=== PATIENT | female | born 1955 | race Caucasian/White ===

== ENCOUNTER → 2017-08-09 | Outpatient (CLI) | payer OTHER ==
[~2017-08-09] MED LIST: CATAFLAN; GLUCO BURST37.5 GM; METFORMIN HYDRO25 GM; PNEU16DI2
== END | disposition home or self-care (01) ==
LOC: LAB 07:38
DX: I10 Essential (primary) hypertension (principal); M54.5 Low back pain; E78.9 Disorder of lipoprotein metabolism, unspecified; E55.9 Vitamin D deficiency, unspecified; E03.8 Other specified hypothyroidism; E66.8 Other obesity; M89.9 Disorder of bone, unspecified; E11.9 Type 2 diabetes mellitus without complications; E11.51 Type 2 diabetes mellitus with diabetic peripheral angiopathy without gangrene; G52.9 Cranial nerve disorder, unspecified; E11.42 Type 2 diabetes mellitus with diabetic polyneuropathy; K21.9 Gastro-esophageal reflux disease without esophagitis; E11.65 Type 2 diabetes mellitus with hyperglycemia; F17.200 Nicotine dependence, unspecified, uncomplicated

== ENCOUNTER 2017-08-27 08:47 | Outpatient (CLI) | payer OTHER | END 2017-08-27 12:24 | disposition home or self-care (01) | LOC: MAMO-SONO 08:47 | DX: Z12.31 Encounter for screening mammogram for malignant neoplasm of breast (principal); I10 Essential (primary) hypertension; M54.5 Low back pain; E78.9 Disorder of lipoprotein metabolism, unspecified; E55.9 Vitamin D deficiency, unspecified; E03.8 Other specified hypothyroidism; E66.8 Other obesity; M89.9 Disorder of bone, unspecified; E11.9 Type 2 diabetes mellitus without complications; E11.51 Type 2 diabetes mellitus with diabetic peripheral angiopathy without gangrene; G62.9 Polyneuropathy, unspecified; E11.42 Type 2 diabetes mellitus with diabetic polyneuropathy; K21.9 Gastro-esophageal reflux disease without esophagitis ==

== ENCOUNTER 2017-11-11 12:10 | Outpatient (CLI) | payer OTHER | END 2017-11-11 12:17 | disposition home or self-care (01) | LOC: LAB 12:10 | DX: I10 Essential (primary) hypertension (principal); M54.5 Low back pain; E78.9 Disorder of lipoprotein metabolism, unspecified; E55.9 Vitamin D deficiency, unspecified; E03.9 Hypothyroidism, unspecified; E66.8 Other obesity; M89.9 Disorder of bone, unspecified; E11.9 Type 2 diabetes mellitus without complications; E11.51 Type 2 diabetes mellitus with diabetic peripheral angiopathy without gangrene; G62.9 Polyneuropathy, unspecified; E11.42 Type 2 diabetes mellitus with diabetic polyneuropathy; K21.9 Gastro-esophageal reflux disease without esophagitis; E11.65 Type 2 diabetes mellitus with hyperglycemia; F17.200 Nicotine dependence, unspecified, uncomplicated ==

== ENCOUNTER 2018-09-15 08:57 | Outpatient (CLI) | payer OTHER | END 2018-09-15 13:49 | disposition home or self-care (01) | LOC: LAB 08:57 | DX: F32.89 Other specified depressive episodes (principal); E11.9 Type 2 diabetes mellitus without complications; E03.8 Other specified hypothyroidism; E11.42 Type 2 diabetes mellitus with diabetic polyneuropathy; E11.51 Type 2 diabetes mellitus with diabetic peripheral angiopathy without gangrene; E11.69 Type 2 diabetes mellitus with other specified complication; E66.8 Other obesity; E55.9 Vitamin D deficiency, unspecified; E78.89 Other lipoprotein metabolism disorders; F17.208 Nicotine dependence, unspecified, with other nicotine-induced disorders; G62.89 Other specified polyneuropathies; I10 Essential (primary) hypertension; K21.9 Gastro-esophageal reflux disease without esophagitis; M54.89 Other dorsalgia; M89.9 Disorder of bone, unspecified ==

== ENCOUNTER 2021-03-16 08:00 | Outpatient (CLI) | payer OTHER | END 2021-03-16 08:30 | disposition home or self-care (01) | LOC: PPH VACUNA 08:00 | DX: Z23 Encounter for immunization (principal) ==

== ENCOUNTER 2021-04-18 08:23 | Outpatient (CLI) | payer OTHER | END 2021-04-18 08:26 | disposition home or self-care (01) | LOC: NUCLEAR 08:23 | PROVIDERS: ATTEND Internal Medicine | DX: I82.622 Acute embolism and thrombosis of deep veins of left upper extremity (principal); I82.492 Acute embolism and thrombosis of other specified deep vein of left lower extremity ==

== ENCOUNTER 2021-04-25 08:00 | Outpatient (CLI) | payer OTHER | END 2021-04-25 08:30 | disposition home or self-care (01) | LOC: PPH VACUNA 08:00 | PROVIDERS: ATTEND Emergency Medicine Pediatric Emergency Medicine | DX: Z23 Encounter for immunization (principal) ==

== ENCOUNTER 2021-11-08 08:00 | Outpatient (CLI) | payer OTHER | END 2021-11-08 08:30 | disposition home or self-care (01) | LOC: PPH VACUNA 08:00 | PROVIDERS: ATTEND Emergency Medicine Pediatric Emergency Medicine | DX: Z23 Encounter for immunization (principal) ==

== ENCOUNTER 2021-12-04 11:27 | Outpatient (CLI) | payer OTHER ==
[2021-12-07] MEDS ORDERED: FOSAMAX70 MG PO (08:39)
[2021-12-07] MEDS ORDERED: HYDROCHLOROTH12.5 MG PO (08:40)
[2021-12-07] MEDS ORDERED: OPTIMAL D31250 MCG PO (08:40)
[2021-12-07] MEDS ORDERED: LEVO-T150 MCG PO (08:40)
[2021-12-07] MEDS ORDERED: CHILDREN'S ASPI81 MG PO (08:40)
[2021-12-07] MEDS ORDERED: VASOTEC2.5 MG PO (08:40)
[2021-12-07] MEDS ORDERED: SIMVASTATIN10 MG PO (08:41)
[2021-12-07] MEDS ORDERED: METFORMIN HCL1000 M2 PO (08:41)
== END 2021-12-04 11:28 | disposition home or self-care (01) ==
LOC: LAB 11:27
PROVIDERS: ATTEND Orthopaedic Surgery
DX: D68.9 Coagulation defect, unspecified (principal); E78.2 Mixed hyperlipidemia; N39.0 Urinary tract infection, site not specified; Z03.818 Encounter for observation for suspected exposure to other biological agents ruled out; R07.9 Chest pain, unspecified

== ENCOUNTER 2021-12-12 05:56 | Day surgery (SDC) | payer OTHER ==
[~2021-12-12 05:56] MED LIST changes: +CHILDREN'S ASPI81 MG PO; +FOSAMAX70 MG PO; +HYDROCHLOROTH12.5 MG PO; +LEVO-T150 MCG PO; +METFORMIN HCL1000 M2 PO; +OPTIMAL D31250 MCG PO; +SIMVASTATIN10 MG PO; +VASOTEC2.5 MG PO
[2021-12-12] MEDS ORDERED: NABUMETONE500 MG PO (10:02)
[2021-12-12] MEDS ORDERED: PERCOCET 5-3251 EACH PO (10:02)
== END 2021-12-12 12:10 | disposition home or self-care (01) ==
LOC: CIR.AMB 05:56
PROVIDERS: ATTEND Orthopaedic Surgery
DX: M75.121 Complete rotator cuff tear or rupture of right shoulder, not specified as traumatic (principal); M75.101 Unspecified rotator cuff tear or rupture of right shoulder, not specified as traumatic; M24.111 Other articular cartilage disorders, right shoulder; Z20.822 Contact with and (suspected) exposure to COVID-19; Z88.8 Allergy status to other drugs, medicaments and biological substances; E78.00 Pure hypercholesterolemia, unspecified; Z71.6 Tobacco abuse counseling; F17.210 Nicotine dependence, cigarettes, uncomplicated; E03.9 Hypothyroidism, unspecified; G40.802 Other epilepsy, not intractable, without status epilepticus; M19.90 Unspecified osteoarthritis, unspecified site; Z79.82 Long term (current) use of aspirin; Z79.84 Long term (current) use of oral hypoglycemic drugs

== ENCOUNTER 2023-01-28 08:03 | Outpatient (CLI) | payer OTHER ==
[~2023-01-28 08:03] MED LIST changes: +NABUMETONE500 MG PO; +PERCOCET 5-3251 EACH PO
== END 2023-01-28 08:05 | disposition home or self-care (01) ==
LOC: NUCLEAR 08:03
PROVIDERS: ATTEND Internal Medicine
DX: Z01.810 Encounter for preprocedural cardiovascular examination (principal); E11.43 Type 2 diabetes mellitus with diabetic autonomic (poly)neuropathy; Z79.84 Long term (current) use of oral hypoglycemic drugs; I10 Essential (primary) hypertension; E03.9 Hypothyroidism, unspecified; M54.50 Low back pain, unspecified; E11.51 Type 2 diabetes mellitus with diabetic peripheral angiopathy without gangrene; E11.65 Type 2 diabetes mellitus with hyperglycemia

== ENCOUNTER 2023-06-17 08:16 | Outpatient (CLI) | payer OTHER ==
[2023-06-17 09:30] LABS: HEMATOCRIT 40.5 % (36.0-45.00); HEMOGLOBIN 13.8 g/dL (12.0-15.00); MEAN CELL VOLUME 92.9 fL (80.00-100.00); MEAN CORPUSCULAR HEMOGLOBIN 31.7 pg (27.00-32.0); MEAN CORPUSCULAR HGB CONC 34.1 g/dl (32.0-36.0); PLATELET COUNT 173 K/uL (150-450); RED BLOOD COUNT 4.36 M/uL (4.00-6.00); RED CELL DISTRIBUTION WIDTH 13.2 % (11.5-14.5)
[2023-06-17 09:43] LABS: PH,URINE 5.5 (5.0-8.0); URINE APPEARANCE Clear; URINE BILIRRUBIN Negative (NEGATIVE); URINE BLOOD Negative; URINE COLOR Yellow; URINE GLUCOSE Negative (NEGATIVE); URINE LEUKOCYTE Negative; URINE NITRATE Negative; URINE PROTEIN Negative (NEGATIVE)
[2023-06-17 09:47] LABS: URINE EPITHELIAL CELLS 2.9 uL (0.0-38.8); URINE RBC 12.9 uL (0.0-20.8)
[2023-06-17 10:10] LABS: URINE WBC 1.6 uL (0.0-23.2)
[2023-06-17 10:27] LABS: ALBUMIN 3.9 gm/dL (3.4-5.0); BILIRUBIN TOTAL 0.71 mg/dL (0.3-1.2); CALCIUM 9.2 mg/dL (8.5-10.1); CHOL HDL RATIO 2.2 (0-5.0); CREATININE SERUM 0.56 mg/dL (0.55-1.02); GFR 108.31; GLOBULINA 2.7 G/DL (2.4-3.5); POTASSIUM 4.66 mEq/L (3.5-5.1); T4 TOTAL 13.01 UG/DL (4.8-13.9); TOTAL PROTEIN 6.6 gm/dL (6.4-8.2); TSH 0.588 uIU/mL (0.358-3.74)
[2023-06-17 11:18] LABS: T3 TOTAL 0.881 ng/ml (0.846-2.02)
[2023-06-17 12:47] LABS: ob NEGATIVE (NEGATIVE)
== END 2023-06-17 08:17 | disposition home or self-care (01) ==
LOC: LAB 08:16
PROVIDERS: ATTEND Internal Medicine
DX: Z01.810 Encounter for preprocedural cardiovascular examination (principal); Z79.4 Long term (current) use of insulin; Z79.84 Long term (current) use of oral hypoglycemic drugs; E11.43 Type 2 diabetes mellitus with diabetic autonomic (poly)neuropathy; G62.9 Polyneuropathy, unspecified; I10 Essential (primary) hypertension; E03.9 Hypothyroidism, unspecified; E11.42 Type 2 diabetes mellitus with diabetic polyneuropathy; M54.50 Low back pain, unspecified; E11.65 Type 2 diabetes mellitus with hyperglycemia; L95.9 Vasculitis limited to the skin, unspecified; I87.2 Venous insufficiency (chronic) (peripheral); Z88.8 Allergy status to other drugs, medicaments and biological substances